=== PATIENT | male | born 1975 | race Hispanic/Latino ===

== ENCOUNTER 2018-05-25 09:22 | Inpatient (IN) | payer BC ==
[2018-05-25] MEDS ORDERED: Nitroglycerin 2% Ointment 1 INCH/1 GM Packet ONE (10:04)
[2018-05-25 10:07] LABS: #Basophils 0.1 thou/uL (0.0-0.2); #Eosinphils 0.1 thou/uL (0.0-0.7); #Lymphocytes 1.5 thou/uL (1.20-3.40); #Monocytes 0.5 thou/uL (0.11-0.59); #Neutrophils 4.7 thou/uL (1.40-6.50); %Basophils 1.7 % (0.0-1.0); %Eosinophils 1.1 % (0.0-10.0); %Lymphocytes 22.5 % (21.0-51.0); %Monocytes 6.7 % (0.0-10.0); Hemoglobin 14.2 g/dL (14.0-18.0); Mean Corpuscular Hemoglobin 31.1 pg (27.0-31.0); Mean Corpuscular Volume 97.2 fL (78.0-98.0); Mean Platelet Volume 8.2 fL (7.4-10.4); Platelet Count 163 thou/uL (130-400); RBC Distribution Width 13.4 % (11.5-14.5); Red Blood Cell (RBC) Count 4.56 mill/uL (4.70-6.10); White Blood Cell (WBC) Count 6.9 thou/uL (4.8-10.8)
[2018-05-25 10:26] LABS: ALT (SGPT) 59 U/L (8-55); AST (SGOT) 43 U/L (5-34); Albumin 4.1 g/dL (3.5-5.0); Alkaline Phosphatase 106 U/L (40-150); Anion Gap 14 mmol/L (10-20); BUN (Urea Nitrogen) 9 mg/dL (8.9-20.6); Bilirubin, Total 0.6 mg/dL (0.2-1.2); Calc. Creatinine Clearance 0 mL/min (70-130); Calcium 8.9 mg/dL (7.8-10.44); Carbon Dioxide 26 mmol/L (22-29); Chloride 107 mmol/L (98-107); Estimated GFR-MDRD Greater than 90; Globulin 3.7 g/dL (2.4-3.5); Glucose 90 mg/dL (70-105); Lipase 22 U/L (8-78); Potassium 4.2 mmol/L (3.5-5.1); Protein, Total 7.8 g/dL (6.0-8.3); Sodium 143 mmol/L (136-145)
--- NOTE | 2018-05-25 10:26 | RAD ---
CHEST TWO VIEWS: Comparison: 07-21-17, 05-06-18 History: Shortness of breath, cough. FINDINGS: Normal cardiac silhouette. The pulmonary vessels and hilum are normal. Costophrenic angles are clear. There are diffuse interstitial opacities without consolidation or mass. No pneumothorax or osseous a bnormality. IMPRESSION: Diffuse interstitial opacities. POS: H
[2018-05-25] MEDS ORDERED: cefTRIAXone\\ROCEPHIN 2 GM VIAL ONE (11:04)
[2018-05-25] MEDS ORDERED: Sodium Chloride 0.9% 100 ML ONE (11:05)
[2018-05-25] MEDS ORDERED: hydrALAZINE 25 MG TAB ONE (11:31)
[2018-05-25] MEDS ORDERED: Azithromycin 500 MG VIAL ONE (11:50)
[2018-05-25 13:18] LABS: Troponin I 0.012 ng/mL (< 0.028)
[2018-05-25] MEDS ORDERED: Acetaminophen 325 MG TAB ONE (13:30)
[2018-05-25 16:46] LABS: Troponin I 0.014 ng/mL (< 0.028)
[2018-05-25] MEDS ORDERED: hydrALAZINE 10 MG TAB PO PRN (19:05)
[2018-05-25] MEDS ORDERED: hydrALAZINE 20 MG/ML VIAL SLOW IVP SCH (19:15)
[2018-05-25 19:33] VITALS: BMI 64.5
[2018-05-25] MEDS ORDERED: Nitroglycerin 2% Ointment 1 INCH/1 GM Packet TOP SCH (20:00)
[2018-05-25] MEDS ORDERED: Dextrose 5% in Water 1,000 ML IV PRN (20:15)
[2018-05-25] MEDS ORDERED: Dextrose 50% Abboject 50 ML SYRINGE SLOW IVP PRN (20:15)
[2018-05-25] MEDS ORDERED: Ondansetron ODT 4 MG TAB PO PRN (20:15)
[2018-05-25] MEDS: Aspirin 325 MG TAB PO SCH (21:25)
--- NOTE | 2018-05-25 21:54 | ULT ---
ULTRASOUND WITH DOPPLER DUPLEX VENOUS LOWER EXTREMITIES BILATERAL: 05/25/18 HISTORY: 43-year-old male with bilateral lower extremity edema. TECHNIQUE: Color flow Doppler, spectral waveform analysis of pulsed Doppler, and waller-scale imaging with ghazal caio and augmentation, were used to evaluate the bilateral common femoral, femoral, popliteal, regulator mechanic ior tibial, and superficial femoral, veins; and the proximal portions of the profunda femoral and gre ater saphenous, veins. FINDINGS: There is normal compressibility, demonstration of blood flow by color Doppler and pulsed Doppler, and response to augmentation, in all interrogated veins. IMPRESSION: Negative. No deep vein thrombosis in the bilateral lower extremities. jn[] POS: JIN
--- NOTE | 2018-05-25 23:33 | HP ---
PRIMARY CARE PHYSICIAN: Dr. Iron Jose. TIME OF EVALUATION: 08:30 p.m. CHIEF COMPLAINT: Worsening shortness of breath. CODE STATUS: Full code. HISTORY OF PRESENT ILLNESS: This is a 43-year-old male patient, who is morbidly obese, came to the hospital after having severe, gradually worsening shortness of breath associated with chest tightness with no clear triggers, no alleviating factors. He reported also having cough. The symptom has been present for the past week, getting gradually worse. He reported being diagnosed with bronchitis on Tuesday and also on treatment with amoxicillin for that reason, but he got diarrhea and discontinued the medication. Of note, the patient had positive D-dimer and negative DVT studies, also reported some scant hemoptysis. We will consult Pulmonary for any further monitoring regarding possibility for pulmonary embolism, which seems not likely. The patient has also had blood pressure in the range of 244/110 on presentation. REVIEW OF SYSTEMS: CONSTITUTIONAL: The patient reports no fever. He reports chills and generalized weakness. RESPIRATORY: Cough, sputum production, hemoptysis, and shortness of breath. CARDIOVASCULAR: No chest pain or palpitations. GASTROINTESTINAL: No nausea. No vomiting. No diarrhea. No abdominal pain. [employer]: No dizziness, headache, or feeling lightheaded. GENITOURINARY: No burning on urination. EXTREMITIES: Bilateral leg swelling, more on the left than the right. All other systems were reviewed and negative expect for the findings as mentioned above. PAST MEDICAL HISTORY: Positive for diabetes, hypertension, sleep apnea, wears CPAP at home. PAST SURGICAL HISTORY: Tonsillectomy. PSYCHIATRIC HISTORY: No previous psych history. SOCIAL HISTORY: The patient drinks everyday, 4 to 5 drinks per day. No drug use. No tobacco. The patient was a heavy smoker. FAMILY HISTORY: Reviewed and noncontributory for current presentation. ALLERGIES: AMOXICILLIN. MEDICATIONS: Tranexamic acid, lisinopril. PHYSICAL EXAMINATION: VITAL SIGNS: Blood pressure 262/144, pulse 113, respiratory rate 20, temperature 98.2, and oxygen saturation 95% on room air. GENERAL APPEARANCE: The patient is alert and oriented, in mild distress due to shortness of breath, receiving hemodialysis and has improved with DuoNeb. HEENT: Eyes, normal conjunctivae. Moist oral mucosa. Anicteric. No JVD. RESPIRATORY: Bilateral air entry with rales and wheezes that were scattered throughout the lung. Symmetric expansion. CARDIOVASCULAR: Normal rate. The patient is hypertensive. No murmurs. No gallops. Bilateral edema. ABDOMEN: Normal bowel sounds. Soft. MUSCULOSKELETAL: Baseline range of motion and strength. No tenderness. SKIN: Warm and intact. No burn or rash. No redness. EXTREMITIES: Peripheral pulses are present. Capillary refill seems to be intact. NEUROLOGIC: No evidence of any new focal weakness. The patient has normal speech. Cranial nerves seems to be intact. PSYCHIATRIC: The patient is in good mood, not sad, oriented. Optimal judgment. DIAGNOSTIC STUDIES: EKG was reviewed. The patient has sinus tachycardia at a rate of 107 without BBB. No evidence of acute ischemic event. Chest x-ray shows diffuse interstitial opacities. LABORATORY DATA: Labs were reviewed. The patient has white count of 6.9, hemoglobin 14.2, MCV 72 and platelet count 163. D-dimer 0.8. Sodium 143, potassium 4.2, chloride 107, carbon dioxide 36, anion gap 14, BUN 9, and creatinine 0.8. GFR was normal. Glucose was normal. LFTs were normal. Troponin was negative x2. ASSESSMENT AND PLAN: The patient was placed in the hospital with the following medical problems: 1. Possible pneumonia, as seen on chest x-ray, has diffuse infiltrates. The patient will be started on antibiotics. We will continue nebs treatment. Oxygen support is needed to keep saturation above 90. 2. Morbid obesity, the patient has been advised to lose weight. 3. Hypertensive urgency. The patient has no significant symptoms. No evidence of any acute organ damage. We will reconcile medications and adjust treatment as needed. 4. Deep venous thrombosis prophylaxis. 5. Hemoptysis, this is minimal, could be secondary to pneumonia, there was initial concern for pulmonary embolism, however, the patient does not fit per CT. for this reason. Therefore, we will consult Pulmonary for their recommendations . Job ID: [id number] [id number]
[2018-05-25] MEDS ORDERED: ALPRAZolam 0.25 MG TAB PO SCH (23:45)
[2018-05-26] MEDS: cloNIDine 0.1 MG TAB PO PRN ×4 (00:10→10:55)
[2018-05-26] MEDS: hydrALAZINE 10 MG TAB PO PRN (02:37)
[2018-05-26 05:57] LABS: #Basophils 0.1 thou/uL (0.0-0.2); #Eosinphils 0.1 thou/uL (0.0-0.7); #Lymphocytes 1.7 thou/uL (1.20-3.40); #Monocytes 0.7 thou/uL (0.11-0.59); #Neutrophils 5.7 thou/uL (1.40-6.50); %Basophils 0.7 % (0.0-1.0); %Lymphocytes 20.4 % (21.0-51.0); %Monocytes 8.8 % (0.0-10.0); %Neutrophils 69.2 % (42.0-75.0); Hemoglobin 14.4 g/dL (14.0-18.0); Mean Corpuscular HGB CONC 33.3 g/dL (32.0-36.0); Mean Corpuscular Hemoglobin 33.1 pg (27.0-31.0); Mean Corpuscular Volume 99.3 fL (78.0-98.0); Mean Platelet Volume 8.4 fL (7.4-10.4); Platelet Count 186 thou/uL (130-400); RBC Distribution Width 13.3 % (11.5-14.5); Red Blood Cell (RBC) Count 4.36 mill/uL (4.70-6.10); White Blood Cell (WBC) Count 8.2 thou/uL (4.8-10.8)
[2018-05-26 06:16] LABS: Anion Gap 15 mmol/L (10-20); BUN (Urea Nitrogen) 7 mg/dL (8.9-20.6); Calc. Creatinine Clearance 422 mL/min (70-130); Calcium 9.1 mg/dL (7.8-10.44); Carbon Dioxide 23 mmol/L (22-29); Chloride 103 mmol/L (98-107); Estimated GFR-MDRD Greater than 90; Glucose 118 mg/dL (70-105); Potassium 3.6 mmol/L (3.5-5.1); Sodium 137 mmol/L (136-145)
[2018-05-26] MEDS: Lisinopril 20 MG TAB PO SCH (07:50)
[2018-05-26] MEDS: Enoxaparin Sodium 40 MG/0.4 ML SYRINGE SC SCH (07:50)
[2018-05-26] MEDS: Acetaminophen 325 MG TAB PO PRN (10:55)
[2018-05-26] MEDS ORDERED: cefTRIAXone\\ROCEPHIN 1 GM in Sodium Chloride 0.9% 100 ML IVPB SCH (11:00)
[2018-05-26] MEDS: Azithromycin 500 MG in Sodium Chloride 0.9% 250 ML 250 ML IVPB SCH (11:54)
[2018-05-26] MEDS ORDERED: Azithromycin 500 MG in Sodium Chloride 0.9% 250 ML 250 ML IVPB SCH (12:00)
[2018-05-26] MEDS: cloNIDine 0.2 MG TAB PO PRN ×2 (12:02→21:13)
[2018-05-26] MEDS ORDERED: Furosemide 40 MG/4 ML VIAL SLOW IVP SCH (13:00)
[2018-05-26] MEDS ORDERED: predniSONE 20 MG TAB PO SCH (14:00)
--- NOTE | 2018-05-26 14:50 | PDOC.PN ---
- Subjective Encounter Start Date: 05/26/18 Encounter Start Time: 14:49 Mr. Hernández was seen today in follow-up of Pneumonia and elevated blood pressure. He says he is still having some dyspnea, but feels a little better. - Objective Resuscitation Status - Order Detail: 05/25/18 20:15 Resuscitation Status Routine Resuscitation Status: FULL: Full Resuscitation MAR Reviewed: Yes Vital Signs & Weight: Vital Signs (12 hours) Temp Pulse Resp BP BP Pulse Ox 05/26/18 12:43 175/106 H 05/26/18 11:57 214/127 H 05/26/18 10:50 98.1 F 100 22 H 203/119 H 98 05/26/18 09:05 187/105 H 05/26/18 07:54 97 05/26/18 07:50 200/103 H 05/26/18 07:46 97.8 F 100 20 215/125 H 97 05/26/18 07:18 117 H 22 H 92 L 05/26/18 04:53 200/103 H 05/26/18 03:39 99 F 94 20 200/103 H 92 L Weight Weight 471 lb 9 oz I&O: 05/25/18 05/26/18 05/27/18 06:59 06:59 06:59 Intake Total 1500 Output Total 3350 Balance -1850 Result Diagrams: 05/26/18 05:11 05/26/18 05:11 Additional Labs: Accuchecks 05/26/18 05/25/18 05:29 20:18 POC Glucose 117 H 129 H Phys Exam - Physical Examination HEENT: PERRLA Respiratory: no wheezing, no rales, no rhonchi, clear to auscultation bilateral decreased breath sounds bilaterally, and coarse breath sounds Cardiovascular: RRR, no significant murmur, no rub Gastrointestinal: soft, non-tender, no distention, positive bowel sounds Musculoskeletal: edema present Dx/Plan (1) Pneumonia, community acquired Code(s): J18.9 - PNEUMONIA, UNSPECIFIED ORGANISM Status: Acute (2) Acute respiratory failure with hypoxia Code(s): J96.01 - ACUTE RESPIRATORY FAILURE WITH HYPOXIA Status: Acute (3) Morbid obesity Code(s): E66.01 - MORBID (SEVERE) OBESITY DUE TO EXCESS CALORIES Status: Chronic (4) Hypertensive urgency Code(s): I16.0 - HYPERTENSIVE URGENCY Status: Acute (5) Diabetes mellitus type 2 in obese Code(s): E11.69 - TYPE 2 DIABETES MELLITUS WITH OTHER SPECIFIED COMPLICATION; E66.9 - OBESITY, UNSPECIFIED Status: Chronic - Plan * Acute Hypoxic respiratory failure due to Pneumonia- continue Rocephin and Azithromycin, as well as supplemental oxygen * HTN- blood pressure is not well controlled. Will add Amlodipine to his current regimen. Agree with Vinay, as this may be effecting his blood pressure as well * DM- blood glucose is stable * Morbid Obesity- Life Threatening- Will consult wringer and setter for calorie restricted diet * SILVIA- continue CPAP/BIPAP
[2018-05-26] MEDS ORDERED: Amlodipine 5 MG TAB PO SCH (15:15)
--- NOTE | 2018-05-26 19:49 | CON ---
DATE OF CONSULTATION: 05/26/2018 SERVICE: Pulmonary Medicine. REASON FOR CONSULT: Respiratory failure, hemoptysis. HISTORY OF PRESENT ILLNESS: The patient is a 43-year-old male with past medical history significant for severe morbid obesity and hypercapnic respiratory failure. He also has obstructive sleep apnea. He was in his usual state of health until right about 1 week prior to presentation. He had a sick contact at work with an episode of bronchitis. A couple of days later, he had increasing cough, congestion, and sputum production. He was bringing up yellow phlegm and green phlegm. On a couple of occasions, his blood pressures started shooting up. He started bringing up a little bit of red phlegm. He has remained on room air this entire period of time. He denies any current fevers or chills. He is having increasing dyspnea. Whenever he wears his CPAP, he does feel better. He is currently using his CPAP but he is talking in full sentences and does not appear to be in any significant distress. He had a D-dimer that was abnormal. A bilateral lower extremity ultrasound was negative, but he is too large to fit into the CT scanner. PAST MEDICAL HISTORY: 1. Morbid obesity. 2. Chronic hypercapnic respiratory failure. 3. Obesity hypoventilation syndrome. 4. Hypertension. 5. Obstructive sleep apnea. 6. Type 2 diabetes mellitus. PAST SURGICAL HISTORY: Tonsillectomy. SOCIAL HISTORY: He drinks 4 or 5 drinks on a daily basis. He denies any illicit drugs. He has no exposure to tobacco. He has no exposure to chemicals, dust, asbestos, or tuberculosis. FAMILY HISTORY: Noncontributory. ALLERGIES: PENICILLIN. MEDICATIONS: List of his inpatient medications was reviewed. I have provided the patient with Lasix schedule. REVIEW OF SYSTEMS: General, head, ears, eyes, nose, throat, cardiovascular, respiratory, GI, , musculoskeletal, neurologic, and skin is negative except as mentioned in the HPI. PHYSICAL EXAMINATION: VITAL SIGNS: Afebrile, pulse 100, blood pressure 203/119, respirations 22, and saturation 98% on room air. GENERAL: The patient is awake, alert, in no apparent distress. LUNGS: Poor air entry. There is no prolonged expiratory phase. Crackles are evident. HEART: Normal rate, regular. ABDOMEN: Soft, nontender, nondistended. Bowel sounds are positive. MUSCULOSKELETAL: No cyanosis or clubbing. There is 2 to 3+ pitting throughout. : No Tracy. NEUROLOGIC: Grossly nonfocal. LABORATORY DATA: WBC 8.2, hemoglobin 14.4, platelets 186,000. D-dimer is 0.86. Basic metabolic profile is otherwise unremarkable. Lactate is negative, calcium 9.1, troponin 0.014, and gently uptrending. AST and ALT are chronically elevated. Alkaline phosphatase falls within the normal limits. BNP negative. Blood cultures are unremarkable x2. IMAGING DATA: 1. Chest x-ray demonstrates interstitial fullness and cephalization. 2. Ultrasound of bilateral lower extremities demonstrates no acute DVT. ASSESSMENT: 1. Acute bronchitis. 2. Hemoptysis, likely secondary to hypertensive event. 3. Hypertensive urgency. 4. Volume overload state. 5. Obstructive sleep apnea. 6. Chronic hypercapnic respiratory failure. 7. Obstructive sleep apnea. DISCUSSION AND PLAN: The patient will continue using his CPAP. He will talk to his primary care physician about possibly switching over to BiPAP as he does have chronic hypercapnic failure. I will do a respiratory virus panel. My suspicion is that the patient has an acute episode of bronchitis. I have a very low index of suspicion for a pulmonary embolism at this time as he is currently not requiring any oxygen, and his heart rate is currently at baseline. Furthermore, he had a presentation that was more consistent with an acute episode of bronchitis. I will give him a couple doses of Lasix as he is significantly volume overloaded. It would be reasonable to switch him over to p.o. medications in 24 hours if he continues to do well. He does not have a pneumonia. As such, Rocephin can be interrupted in the morning. Pulmonary Critical Care will continue to follow. 70 minutes have been devoted to this patient in various activities. I personally reviewed all imaging studies and laboratory data noted within this document. For fifty percent of this time, I was interacting with the patient at the bedside or coordinating care with the care team. For the remainder of the time I was immediately available to the patient in the hospital unit. Job ID: [id number] MTDD
[2018-05-26] MEDS: Aspirin 325 MG TAB PO SCH (21:07)
[2018-05-26] MEDS: Cefdinir 300 MG CAP PO SCH (21:08)
[2018-05-27 06:42] LABS: Anion Gap 15 mmol/L (10-20); BUN (Urea Nitrogen) 9 mg/dL (8.9-20.6); Calc. Creatinine Clearance 401 mL/min (70-130); Calcium 9.4 mg/dL (7.8-10.44); Carbon Dioxide 25 mmol/L (22-29); Chloride 104 mmol/L (98-107); Estimated GFR-MDRD Greater than 90; Glucose 119 mg/dL (70-105); Potassium 3.9 mmol/L (3.5-5.1); Sodium 140 mmol/L (136-145)
[2018-05-27 07:31] LABS: #Basophils 0.1 thou/uL (0.0-0.2); #Lymphocytes 1.7 thou/uL (1.20-3.40); #Monocytes 0.5 thou/uL (0.11-0.59); %Basophils 0.6 % (0.0-1.0); %Eosinophils 0.4 % (0.0-10.0); %Lymphocytes 17.9 % (21.0-51.0); %Monocytes 5.4 % (0.0-10.0); %Neutrophils 75.7 % (42.0-75.0); Hemoglobin 14.7 g/dL (14.0-18.0); Mean Corpuscular HGB CONC 33.1 g/dL (32.0-36.0); Mean Corpuscular Hemoglobin 32.9 pg (27.0-31.0); Mean Corpuscular Volume 99.4 fL (78.0-98.0); Mean Platelet Volume 8.6 fL (7.4-10.4); Platelet Count 162 thou/uL (130-400); RBC Distribution Width 13.5 % (11.5-14.5); Red Blood Cell (RBC) Count 4.46 mill/uL (4.70-6.10); White Blood Cell (WBC) Count 9.2 thou/uL (4.8-10.8)
[2018-05-27] MEDS: Enoxaparin Sodium 40 MG/0.4 ML SYRINGE SC SCH (08:57)
[2018-05-27] MEDS: Cefdinir 300 MG CAP PO SCH ×2 (08:57→20:08)
[2018-05-27] MEDS: predniSONE 20 MG TAB PO SCH (08:57)
[2018-05-27] MEDS: Lisinopril 20 MG TAB PO SCH (08:58)
[2018-05-27] MEDS: Amlodipine 5 MG TAB PO SCH (08:59)
[2018-05-27] MEDS: Furosemide 40 MG/4 ML VIAL SLOW IVP SCH (09:00)
[2018-05-27] MEDS ORDERED: Carvedilol 6.25 MG TAB PO SCH (10:45)
[2018-05-27] MEDS: HumaLOG 300 UNITS/3 ML VIAL SC PRN ×2 (11:58→17:11)
[2018-05-27] MEDS: Azithromycin 500 MG in Sodium Chloride 0.9% 250 ML 250 ML IVPB SCH (11:59)
--- NOTE | 2018-05-27 16:13 | PDOC.PN ---
- Subjective Encounter Start Date: 05/27/18 Encounter Start Time: 11:45 Mr. Hernández was seen today in follow-up of Bronchitis, and hypertensive emergency. He says he is feeling better, and that he is less short of breath. He does not feel ready to go home yet. - Objective Resuscitation Status - Order Detail: 05/25/18 20:15 Resuscitation Status Routine Resuscitation Status: FULL: Full Resuscitation MAR Reviewed: Yes Vital Signs & Weight: Vital Signs (12 hours) Temp Pulse Resp BP BP BP Pulse Ox 05/27/18 15:39 98.3 F 104 H 22 H 148/97 H 98 05/27/18 14:28 86 16 05/27/18 11:00 97.8 F 90 22 H 172/106 H 96 05/27/18 10:59 172/106 H 05/27/18 08:59 82 05/27/18 08:58 173/115 H 05/27/18 08:55 98.3 F 89 24 H 173/115 H 96 05/27/18 08:02 82 16 Weight Weight 464 lb 3 oz I&O: 05/26/18 05/27/18 05/28/18 06:59 06:59 06:59 Intake Total 1500 1135 315 Output Total 3350 3450 2500 Balance -7734 -5312 -1159 Result Diagrams: 05/27/18 07:10 05/27/18 05:16 Additional Labs: Accuchecks 05/27/18 05/27/18 05/26/18 11:05 05:38 20:20 POC Glucose 164 H 130 H 148 H 05/26/18 05/26/18 16:23 10:29 POC Glucose 133 H 139 H Phys Exam - Physical Examination HEENT: PERRLA Respiratory: no rhonchi, wheezing present + wheezing in both lungs, and rales and decreased breath sounds at the base Cardiovascular: RRR, no significant murmur, no rub Gastrointestinal: soft, non-tender, no distention, positive bowel sounds Musculoskeletal: pulses present, edema present + 1 edema in both lower extremities, and chronic venous stasis changes Dx/Plan (1) Acute bronchitis Code(s): J20.9 - ACUTE BRONCHITIS, UNSPECIFIED Status: Acute (2) Pneumonia, community acquired Code(s): J18.9 - PNEUMONIA, UNSPECIFIED ORGANISM Status: Ruled-out Comment: Ruled out- Bronchitis (3) Acute respiratory failure with hypoxia Code(s): J96.01 - ACUTE RESPIRATORY FAILURE WITH HYPOXIA Status: Acute (4) Morbid obesity Code(s): E66.01 - MORBID (SEVERE) OBESITY DUE TO EXCESS CALORIES Status: Chronic (5) Hypertensive urgency Code(s): I16.0 - HYPERTENSIVE URGENCY Status: Acute (6) Diabetes mellitus type 2 in obese Code(s): E11.69 - TYPE 2 DIABETES MELLITUS WITH OTHER SPECIFIED COMPLICATION; E66.9 - OBESITY, UNSPECIFIED Status: Chronic (7) Hypertension Code(s): I10 - ESSENTIAL (PRIMARY) HYPERTENSION Status: Chronic (8) Tobacco abuse Code(s): Z72.0 - TOBACCO USE Status: Acute (9) Alcohol abuse Code(s): F10.10 - ALCOHOL ABUSE, UNCOMPLICATED Status: Acute - Plan * Acute Bronchitis- improving slowly- continue Brittani Sharma, * HTN- blood pressure is better after adding Carvediolol * Obesity- discussed diet and exercise * SILVIA- discussed getting a new sleep study done * Tobacco abuse- discussed the dangers of this and gave brief counseling * Alcohol Abuse- as above * Hopefully home tomorrow.
[2018-05-27] MEDS: Carvedilol 6.25 MG TAB PO SCH (16:28)
[2018-05-27] MEDS: Acetaminophen 325 MG TAB PO PRN ×2 (17:13→23:46)
[2018-05-27] MEDS: Aspirin 325 MG TAB PO SCH (20:08)
[2018-05-27] MEDS ORDERED: Benzonatate 100 MG CAP PO PRN (21:13)
[2018-05-27] MEDS ORDERED: guaiFENesin ER 600 MG TAB PO SCH (21:45)
--- NOTE | 2018-05-27 22:38 | PRG ---
DATE OF SERVICE: 05/27/2018 SERVICE: Pulmonary Medicine. INTERVAL HISTORY: The patient is doing outstanding from respiratory standpoint. He had a significant drop in weight associated with the Lasix that he has been getting. He denies any current fevers or chills. His cough is still present. He feels like there is stuff inside of his chest, but he cannot get it out. OBJECTIVE: VITAL SIGNS: Afebrile, pulse 104, blood pressure 148/97, respirations 22, and saturation 98% on room air. GENERAL: The patient is awake, alert, in no apparent distress. LUNGS: Excellent air entry. There is no prolonged expiratory phase, wheezing, or rhonchi. Dependent crackles are noted. HEART: Normal rate and regular. ABDOMEN: Soft, nontender, and nondistended. Bowel sounds are positive. MUSCULOSKELETAL: No cyanosis or clubbing. There is 1 to 2+ pitting in bilateral lower extremities. NEUROLOGIC: Grossly nonfocal. LABORATORY DATA: WBC 9.2, hemoglobin 14.7, platelets 162,000. Basic metabolic profile is essentially unremarkable. Potassium 3.9. Blood cultures x2 are unremarkable. ASSESSMENT: 1. Acute bronchitis. 2. Hemoptysis, likely secondary to hypertension. 3. Hypertensive urgency. 4. Volume overload. 5. Obstructive sleep apnea. 6. Chronic hypercapnic respiratory failure. DISCUSSION AND PLAN: We will continue his p.r.n. CPAP. He will use this whenever he is sleeping. We will continue to diurese the patient through time. Pulmonary will continue to follow along. Supportive measures will be continued for the time being. He starts approaching discharge from the hospital. We should consider sending him out with a p.r.n. dose of Lasix. Job ID: [id number]
[2018-05-28 06:22] LABS: Anion Gap 12 mmol/L (10-20); BUN (Urea Nitrogen) 17 mg/dL (8.9-20.6); Calc. Creatinine Clearance 374 mL/min (70-130); Calcium 9.3 mg/dL (7.8-10.44); Carbon Dioxide 27 mmol/L (22-29); Chloride 102 mmol/L (98-107); Estimated GFR-MDRD Greater than 90; Glucose 101 mg/dL (70-105); Potassium 3.3 mmol/L (3.5-5.1); Sodium 138 mmol/L (136-145)
[2018-05-28] MEDS ORDERED: Potassium Chloride 20 MEQ TAB PO SCH ×2 (07:45→11:00)
[2018-05-28] MEDS: Enoxaparin Sodium 40 MG/0.4 ML SYRINGE SC SCH (08:45)
[2018-05-28] MEDS: Cefdinir 300 MG CAP PO SCH ×2 (08:46→21:23)
[2018-05-28] MEDS: Carvedilol 6.25 MG TAB PO SCH ×2 (08:46→17:35)
[2018-05-28] MEDS: predniSONE 20 MG TAB PO SCH (08:46)
[2018-05-28] MEDS: Lisinopril 20 MG TAB PO SCH (08:46)
[2018-05-28] MEDS: Amlodipine 5 MG TAB PO SCH (08:46)
[2018-05-28] MEDS: Furosemide 40 MG/4 ML VIAL SLOW IVP SCH (08:47)
[2018-05-28] MEDS: guaiFENesin ER 600 MG TAB PO SCH ×2 (08:57→21:22)
--- NOTE | 2018-05-28 10:46 | PDOC.PN ---
- Subjective Encounter Start Date: 05/28/18 Encounter Start Time: 10:44 Mr. Hernández was seen today in follow-up of Bronchitis, and elevated blood pressure. He says he feels better today. He is breathing better, and able to walk easier. - Objective Resuscitation Status - Order Detail: 05/25/18 20:15 Resuscitation Status Routine Resuscitation Status: FULL: Full Resuscitation MAR Reviewed: Yes Vital Signs & Weight: Vital Signs (12 hours) Temp Pulse Resp BP Pulse Ox 05/28/18 08:46 72 05/28/18 08:00 97.7 F 87 18 191/114 H 98 05/28/18 04:04 97.8 F 72 20 165/85 H 97 05/27/18 23:57 93 L Weight Weight 459 lb 5 oz I&O: 05/27/18 05/28/18 05/29/18 06:59 06:59 06:59 Intake Total 1135 1545 Output Total 3450 2850 Balance -2315 -1305 Result Diagrams: 05/27/18 07:10 05/28/18 04:56 Additional Labs: Accuchecks 05/28/18 05/27/18 05/27/18 05:46 20:15 16:48 POC Glucose 101 125 H 153 H 05/27/18 11:05 POC Glucose 164 H Phys Exam - Physical Examination HEENT: PERRLA Respiratory: wheezing present + decreased breath sounds at the bases, and wheezing bilaterally Cardiovascular: RRR, no significant murmur, no rub Gastrointestinal: soft, non-tender, no distention, positive bowel sounds Musculoskeletal: pulses present, edema present 1+ pitting edema, and venous stasis changes, Neurological: non-focal, moves all 4 limbs Dx/Plan (1) Acute bronchitis Code(s): J20.9 - ACUTE BRONCHITIS, UNSPECIFIED Status: Acute (2) Pneumonia, community acquired Code(s): J18.9 - PNEUMONIA, UNSPECIFIED ORGANISM Status: Ruled-out Comment: Ruled out- Bronchitis (3) Acute respiratory failure with hypoxia Code(s): J96.01 - ACUTE RESPIRATORY FAILURE WITH HYPOXIA Status: Acute (4) Morbid obesity Code(s): E66.01 - MORBID (SEVERE) OBESITY DUE TO EXCESS CALORIES Status: Chronic (5) Hypertensive urgency Code(s): I16.0 - HYPERTENSIVE URGENCY Status: Acute (6) Diabetes mellitus type 2 in obese Code(s): E11.69 - TYPE 2 DIABETES MELLITUS WITH OTHER SPECIFIED COMPLICATION; E66.9 - OBESITY, UNSPECIFIED Status: Chronic (7) Hypertension Code(s): I10 - ESSENTIAL (PRIMARY) HYPERTENSION Status: Chronic (8) Tobacco abuse Code(s): Z72.0 - TOBACCO USE Status: Acute (9) Alcohol abuse Code(s): F10.10 - ALCOHOL ABUSE, UNCOMPLICATED Status: Acute - Plan * Acute Bronchitis- resolving * Hypertensive urgency- improving- blood pressure may take several weeks to get to [place]. Will increase his dose of Amlodipine to 10 mg , continue coreg * Obesity- discussed with patient * SILVIA- continue BIPAP while in the hospital * Continue to diurese- he has lost over 20 pounds of fluid since admission * Home in AM if stable.
[2018-05-28] MEDS: Azithromycin 500 MG in Sodium Chloride 0.9% 250 ML 250 ML IVPB SCH (11:50)
[2018-05-28] MEDS: cloNIDine 0.2 MG TAB PO PRN ×2 (11:58→22:56)
[2018-05-28] MEDS: Acetaminophen 325 MG TAB PO PRN ×2 (11:58→21:23)
[2018-05-28] MEDS ORDERED: Furosemide 40 MG/4 ML VIAL SLOW IVP SCH (19:00)
--- NOTE | 2018-05-28 19:08 | PRG ---
DATE OF SERVICE: 05/28/2018 SERVICE: Pulmonary Medicine. INTERVAL HISTORY: The patient is breathing very comfortably. He denies any fevers, chills, nausea, or vomiting. The lower extremity swelling persists, but is much improved. His abdominal swelling is better. He is sleeping easier and has more refreshing sleep. PHYSICAL EXAMINATION: VITAL SIGNS: Afebrile, pulse 89, blood pressure 159/91, respirations 18, and saturation 93% on room air. GENERAL: The patient is awake, alert, in no apparent distress. LUNGS: Excellent air entry. There is still some dependent crackles. He is moving much better air. There is no prolonged expiratory phase or wheezing appreciated. HEART: Normal rate, regular. ABDOMEN: Soft, nontender, and nondistended. Bowel sounds are positive. MUSCULOSKELETAL: No cyanosis or clubbing. There is 2+ pitting in the bilateral lower extremities. NEUROLOGIC: Grossly nonfocal. LABORATORY DATA: Potassium 3.3. Magnesium 2.0. Basic metabolic profile is otherwise unremarkable. His creatinine remains stable at 0.75, and his bicarb remains low at 27. Blood cultures x2 are unremarkable. ASSESSMENT: 1. Acute bronchitis. 2. Hemoptysis, likely secondary to hypertensive event and pulmonary edema. 3. Hypertensive urgency. 4. Volume overload. 5. Obstructive sleep apnea. 6. Chronic hypercapnic respiratory failure. DISCUSSION AND PLAN: He will continue his CPAP at bedtime. We will continue to diurese the patient through time. If he is breathing comfortably by tomorrow morning, he can be considered for transition out of the hospital. I think it would be reasonable to send him home on p.r.n. Lasix, which he should only take on mornings with leg swelling. Pulmonary will continue to follow if he remains in-house. Job ID: [id number] MTDD
[2018-05-28] MEDS: Aspirin 325 MG TAB PO SCH (21:23)
[2018-05-28] MEDS ORDERED: Melatonin 3 MG TAB PO SCH (22:30)
[2018-05-29] MEDS ORDERED: hydrALAZINE 20 MG/ML VIAL SLOW IVP PRN (02:05)
[2018-05-29 06:19] LABS: Anion Gap 16 mmol/L (10-20); BUN (Urea Nitrogen) 20 mg/dL (8.9-20.6); Calc. Creatinine Clearance 352 mL/min (70-130); Calcium 9.2 mg/dL (7.8-10.44); Carbon Dioxide 23 mmol/L (22-29); Chloride 102 mmol/L (98-107); Estimated GFR-MDRD Greater than 90; Glucose 109 mg/dL (70-105); Sodium 137 mmol/L (136-145)
[2018-05-29] MEDS ORDERED: Furosemide 40 MG/4 ML VIAL SLOW IVP SCH (07:00)
[2018-05-29] MEDS ORDERED: Carvedilol 6.25 MG TAB PO SCH (08:00)
[2018-05-29] MEDS: Lisinopril 20 MG TAB PO SCH (08:27)
[2018-05-29] MEDS: guaiFENesin ER 600 MG TAB PO SCH (08:28)
[2018-05-29] MEDS: predniSONE 20 MG TAB PO SCH (08:28)
[2018-05-29] MEDS: Cefdinir 300 MG CAP PO SCH (08:28)
[2018-05-29] MEDS: Enoxaparin Sodium 40 MG/0.4 ML SYRINGE SC SCH (08:30)
[2018-05-29] MEDS ORDERED: Amlodipine 10 MG TAB PO SCH (09:00)
[2018-05-29] MEDS: cloNIDine 0.2 MG TAB PO PRN (09:55)
--- NOTE | 2018-05-29 09:57 | PDOC.PN ---
- Subjective Encounter Start Date: 05/29/18 Encounter Start Time: 09:56 Mr. Wilder was seen today in follow-up of Acute respiratory failure and elevated blood pressure. He says he is feeling better toda and is anxious to go home. - Objective Resuscitation Status - Order Detail: 05/25/18 20:15 Resuscitation Status Routine Resuscitation Status: FULL: Full Resuscitation MAR Reviewed: Yes Vital Signs & Weight: Vital Signs (12 hours) Temp Pulse Resp BP BP BP Pulse Ox 05/29/18 09:55 188/96 H 05/29/18 08:28 83 05/29/18 08:00 95 05/29/18 07:57 97.8 F 83 16 213/106 H 95 05/29/18 07:12 77 16 97 05/29/18 03:43 97.9 F 74 18 174/99 H 97 05/29/18 00:00 188/110 H 05/28/18 23:34 93 L 05/28/18 22:56 186/100 H Weight Weight 449 lb 6.4 oz I&O: 05/28/18 05/29/18 05/30/18 06:59 06:59 06:59 Intake Total 1545 1120 Output Total 2850 5100 Balance -1305 -3980 Result Diagrams: 05/27/18 07:10 05/29/18 05:12 Additional Labs: Accuchecks 05/29/18 05/28/18 05/28/18 05:44 20:10 17:09 POC Glucose 127 H 206 H 159 H 05/28/18 10:37 POC Glucose 128 H Phys Exam - Physical Examination HEENT: PERRLA Respiratory: wheezing present, clear to auscultation bilateral Cardiovascular: RRR, no significant murmur, no rub Gastrointestinal: soft, non-tender, no distention, positive bowel sounds Musculoskeletal: edema present + non- pitting edema of the lwer extremities, and chronic venous stasis changes Dx/Plan (1) Acute bronchitis Code(s): J20.9 - ACUTE BRONCHITIS, UNSPECIFIED Status: Acute (2) Pneumonia, community acquired Code(s): J18.9 - PNEUMONIA, UNSPECIFIED ORGANISM Status: Ruled-out Comment: Ruled out- Bronchitis (3) Acute respiratory failure with hypoxia Code(s): J96.01 - ACUTE RESPIRATORY FAILURE WITH HYPOXIA Status: Acute (4) Morbid obesity Code(s): E66.01 - MORBID (SEVERE) OBESITY DUE TO EXCESS CALORIES Status: Chronic (5) Hypertensive urgency Code(s): I16.0 - HYPERTENSIVE URGENCY Status: Acute (6) Diabetes mellitus type 2 in obese Code(s): E11.69 - TYPE 2 DIABETES MELLITUS WITH OTHER SPECIFIED COMPLICATION; E66.9 - OBESITY, UNSPECIFIED Status: Chronic (7) Hypertension Code(s): I10 - ESSENTIAL (PRIMARY) HYPERTENSION Status: Chronic (8) Tobacco abuse Code(s): Z72.0 - TOBACCO USE Status: Acute (9) Alcohol abuse Code(s): F10.10 - ALCOHOL ABUSE, UNCOMPLICATED Status: Acute - Plan * Acute Bronchitis- improved * HTN- blood pressure is labile- will increase his dose of Carvediolol * Anticipate discharge home this afternoon.
--- NOTE | 2018-05-29 11:34 | PRG ---
DATE OF SERVICE: 05/29/2018 SERVICE: Pulmonary Medicine. SUBJECTIVE: The patient continues to make a fantastic improvement in his breathing. Denies any current chest pain, fevers, or chills. Otherwise, there has been no interval change to his condition. His lower extremity swelling has improved dramatically. He is very happy with where he is right now. He has lost a total of almost 35 pounds in a very short period of time. OBJECTIVE: VITAL SIGNS: Afebrile. Pulse 83, blood pressure 188/96, respirations 16, and saturation 95% on room air. GENERAL: The patient is awake and alert, in no apparent distress. LUNGS: Excellent air entry. There is now a little bit dependent crackles that are appreciated. No prolonged expiratory phase or wheezing appreciated. HEART: Normal rate, regular. ABDOMEN: Soft, nontender, and nondistended. Bowel sounds are positive. MUSCULOSKELETAL: No cyanosis or clubbing. No pitting in the bilateral lower extremities. NEUROLOGIC: Grossly nonfocal. LABORATORY DATA: Potassium 4.0. Creatinine 0.79. Basic metabolic profile is otherwise unremarkable. Blood cultures x2 are negative. ASSESSMENT: 1. Acute bronchitis, resolving. 2. Hemoptysis, likely secondary to hypertensive event and pulmonary edema. 3. Hypertensive urgency. 4. Volume overload, resolving. 5. Chronic hypercapnic respiratory failure. 6. Obstructive sleep apnea. DISCUSSION AND PLAN: We will continue to diurese into euvolemia. From my perspective, he is stable for transition out of the hospital. He can have a 5-day course of antibiotic. In the outpatient setting, I think it would be reasonable to put him on p.r.n. Lasix, which he will only take on mornings, in which he has lower extremity swelling. At this point, he has no further requirements for inpatient Pulmonary/Critical Care opinion, and I will sign off. Please call with additional questions or concerns. Job ID: [id number]
[2018-05-29] MEDS: hydrALAZINE 10 MG TAB PO PRN (11:38)
[2018-05-29 11:39] VITALS: BP 183/105
[2018-05-29 11:46] VITALS: TEMP 98.1
--- NOTE | 2018-05-29 14:07 | DIS ---
DATE OF ADMISSION: 05/25/2018 DATE OF DISCHARGE: 05/29/2018 PRIMARY CARE PHYSICIAN: Iron Jose MD DISCHARGE DISPOSITION: Home. PRIMARY DISCHARGE DIAGNOSES: 1. Acute bronchitis. 2. Acute respiratory failure with hypoxemia, secondary to #1. 3. Hypertensive urgency. 4. Morbid obesity. The patient is 6 feet 1 inches and 449 pounds. 5. Obstructive sleep apnea. DISCHARGE MEDICATIONS: Include: 1. Lisinopril 20 mg daily. 2. Carvedilol 12.5 mg twice daily. 3. Azithromycin 250 mg daily. 4. Amlodipine 10 mg daily. 5. Ventolin inhaler 2 puffs q.6 as needed. 6. Glipizide 10 mg daily. PROCEDURES DONE: During the admission, the patient had a lower extremity venous Doppler, which was negative for DVT in either extremity. CODE STATUS: Full code. ALLERGIES: NO KNOWN DRUG ALLERGIES. HOSPITAL COURSE: Mr. Hernández is a pleasant 43-year-old gentleman, who presented to the emergency room complaining of shortness of breath. He was also wheezing and coughing and he swells. Chest x-ray was significant for some diffuse interstitial infiltrates, initially thought to possibly be pneumonia, but after he was seen by Pulmonology, it was felt that this was likely the result of volume overload. He was diuresed and lost over 30 pounds of fluid during his hospital stay, began to improve with regard to his respiratory status. It was also noted that his blood pressure was extremely high with systolic blood pressures often above 200 and the diastolics in the 110 to 100 range. He was only on lisinopril from the outpatient setting. Carvedilol as well as amlodipine were added to his regimen plus he will be discharged on Lasix as needed. Hopefully, he will continue to follow up as instructed for continued blood pressure management. He was also instructed to get a repeat sleep study as his last sleep study was about [address] Meade felt he would likely benefit from BiPAP as opposed to CPAP. The patient was instructed on this as well, as well as healthier diet and exercise and is subsequently being discharged home. Job ID: [id number]
--- NOTE | 2018-06-02 07:19 | PQF ---
REGINALD TYLER JR, TONI MD [id number] [facility]287 [id number] CLINICAL DOCUMENTATION CLARIFICATION FORM: POST DISCHARGE Addendum to original discharge summary date: ____ Late entry note date: __ DATE: 06/02/2018 ATTN: DR. GARRISON Please exercise your independent, professional judgment in responding to the clarification form. Clinical indicators are provided on the bottom of this form for your review Please check appropriate box(s): [ ] Acute Respiratory Failure: [ ] with Hypoxia[ ] with Hypercapnia [ ] Acute On Chronic Respiratory Failure: [ ] with Hypoxia [ ] with Hypercapnia [ ] Chronic Respiratory Failure only [ ] with Hypoxia [ ] with Hypercapnia [ ] Other diagnosis [ ] Unable to determine In addition, please specify: Present on Admission (POA): [ ] Yes [ ] No [ ] Unable to determine For continuity of documentation, please document condition throughout progress notes and discharge summary. Thank You. CLINICAL INDICATORS - SIGNS / SYMPTOMS / LABS: 05/25 H&P - Vitals: Resp rate: 20, oxygen saturation 95% on room air 05/26 Pulm consult - Chronic hypercapnic respiratory failure 05/27-05/29 PN - Chronic hypercapnic respiratory failure 05/26-05/29 PN - Dr. Garrison - Acute respiratory failure with hypoxemia 05/29 DS - Acute respiratory failure with hypoxemia RISK FACTORS: Acute Bronchitis Tobacco abuse Morbid obesity TREATMENTS: CPAP Respiratory treatments CXR Pulmonary Consult (This form is maintained as a part of the permanent medical record) 2014 [employer]. All Rights Reserved Kristel Chavira, CONNIE, [facility] [email or web address] [phone] VIVIAN
== END 2018-05-29 12:04 | disposition home or self-care (01) | DRG 202 ==
LOC: SCSER 09:22 → ERHOLD 12:03 → 2NO 18:56
PROVIDERS: ADMIT Internal Medicine; ATTEND Internal Medicine
DX: J20.9 Acute bronchitis, unspecified (principal); J96.01 Acute respiratory failure with hypoxia; R04.2 Hemoptysis; J96.12 Chronic respiratory failure with hypercapnia; E66.2 Morbid (severe) obesity with alveolar hypoventilation; Z68.44 Body mass index [BMI] 60.0-69.9, adult; I10 Essential (primary) hypertension; I16.0 Hypertensive urgency; G47.33 Obstructive sleep apnea (adult) (pediatric); E11.69 Type 2 diabetes mellitus with other specified complication; F10.10 Alcohol abuse, uncomplicated; F17.210 Nicotine dependence, cigarettes, uncomplicated
CPT/HCPCS: 36415; 36416; 71046; 80048; 80053; 83605; 83690; 83735; 83880; 84484; 85025; 85379; 87040; 93005; 93970; 94640; 94660; 96365; 96367; 99406; J0360; J0456; J0696; J1650; J1940; J7050; J7506; J7620

== ENCOUNTER 2018-07-13 19:30 | Outpatient (CLI) | payer BC | END 2018-07-13 19:31 | disposition home or self-care (01) | LOC: SLEEPLAB 19:30 | PROVIDERS: ATTEND Family Medicine | DX: G47.33 Obstructive sleep apnea (adult) (pediatric) (principal); E11.9 Type 2 diabetes mellitus without complications; E66.9 Obesity, unspecified; F41.9 Anxiety disorder, unspecified; I10 Essential (primary) hypertension; Z68.44 Body mass index [BMI] 60.0-69.9, adult | CPT/HCPCS: 95811 ==

== ENCOUNTER 2018-08-04 13:11 | Outpatient (CLI) | payer BC ==
--- NOTE | 2018-08-04 16:10 | ULT ---
ARTERIAL DOPPLER EVALUATION BILATERAL LOWER EXTREMITIES WITH SPECTRAL ANALYSIS AND COLOR DANIELA EVALUAT ION 08/04/18 HISTORY: Tachycardia, claudication, peripheral vascular disease. FINDINGS: Triphasic waveforms are seen within the right common femoral and proximal superficial femoral arterie s with biphasic waveforms present in the profunda femoral, mid superficial femoral, popliteal as well as tibial arteries. The distal superficial femoral artery is not visualized. There are biphasic waveforms seen throughout the left lower extremity arterial vessels. The left ante rior tibial artery is not visualized. There is an elevated peak systolic velocity in the left common femoral artery of 163.2 cm/s; this is also asymmetrically elevated with respect to the right common femoral artery. This suggests a signifi cant stenosis in this region. There are also elevated peak systolic velocities within the superficial femoral arteries bilaterally, again greater on the left which may represent multifocal areas of narrowing within the superficial f emoral arteries bilaterally, and greater on the left. Again, the distal right lower extremity superfi cial femoral artery is not visualized which may be related to critical stenosis or occlusion. There is an elevated peak systolic velocity in the left popliteal artery of 137.8 cm/s with a normal peak systolic velocity in the right popliteal artery. Findings suggest a focal narrowing in the left popliteal artery. Diminished peak systolic velocity seen in the anterior tibial artery which may repr esent a stenosis at the origin. The left anterior tibial artery is not imaged which may be secondary to either critical area of narrowing or occlusion. This examination is limited due to depth of vessels below the skin surface. IMPRESSION: Findings suggesting multifocal atherosclerotic vascular disease and areas of narrowing based on wavef orm analysis and areas of elevated peak systolic velocities as described above including nonvisualiza tion of the right distal superficial femoral artery and the left anterior tibial artery which may be related to either critical stenosis or occlusions involving these vessels. POS: TIERRA
== END 2018-08-04 13:12 | disposition home or self-care (01) ==
LOC: ULT 13:11
PROVIDERS: ATTEND Family Medicine
DX: R00.0 Tachycardia, unspecified (principal); R79.89 Other specified abnormal findings of blood chemistry
CPT/HCPCS: 93923

== ENCOUNTER 2018-08-15 10:19 | Outpatient (CLI) | payer BC ==
--- NOTE | 2018-08-15 11:59 | ULT ---
BILATERAL LOWER EXTREMITY VENOUS DUPLEX SONOGRAM: Date: 08/15/18 HISTORY: Elevated D-Dimer. Bilateral leg pain and edema. FINDINGS: Each common femoral vein and greater saphenous junction were evaluated along with each femoral and de ep femoral, popliteal, and posterior tibial vein. There is good color and spectral Doppler flow, comp ression, and augmentation. IMPRESSION: No sonographic evidence of deep venous thrombosis within either lower extremity. POS: TIERRA
== END 2018-08-15 10:20 | disposition home or self-care (01) ==
LOC: SCSULT 10:19
PROVIDERS: ATTEND Family Medicine
DX: R79.1 Abnormal coagulation profile (principal)
CPT/HCPCS: 93970